=== PATIENT | male | born 1990 | race Caucasian/White ===

== ENCOUNTER 2017-03-17 07:17 | Emergency (ER) | payer BC ==
[~2017-03-17] VITALS: Ht 175.3 cm; Wt 117.9 kg
--- NOTE | 2017-03-17 07:42 | ER.PDOC ---
General Chief Complaint: Cough/Congestion Stated Complaint: CONGESTION,ASTHMA,HEADACHE Time seen by MD: 07:39 Source: patient Exam Limitations: no limitations History of Present Illness Initial Comments Cough and congestion for 5 days. No fever or chills. Timing/Duration: gradual Severity: moderate Associated Symptoms: runny nose, cough, headache Constitutional: no symptoms reported EENTM: see HPI Respiratory: see HPI Cardiovascular: no symptoms reported Gastrointestinal: no symptoms reported Genitourinary: no symptoms reported All Other Systems: Reviewed and Negative Past Medical History Medical History: asthma Surgical History: no surgical history Social History Smoking: chew Alcohol Use: occassionally Drug Use: none Physical Exam General Appearance: alert, no distress Nose: rhinorrhea Throat: pharynx nml, airway nml Neck: nml inspection, supple Respiratory: no resp.distress, breath sounds nml Abdomen: non-tender, no organomegaly CVS: reg rate & rhythm, heart sounds nml Extremities: non-tender, nml ROM, no pedal edema NEURO/PSYCH: oriented x 3, CN's nml as tested, motor nml, sensation nml, mood/ affect nml Departure Time of Disposition: 07:40 Disposition: 01 HOME, SELF-CARE Impression: Primary Impression: Acute URI Condition: Stable Referrals: UNDEFINED,PHYSICIAN (PCP) PRIMARY CARE PROVIDER Additional Instructions: Continue Mucinex DM OTC as directed Continue Afrin nose drops OTC as directed for 5 days Push fluids F/U with your PCP in 3-4 days Duration or Time Spent with Pa: 20 mins JEANA JUARES MD Mar 17, 2017 07:42
[2017-03-17 07:48] VITALS: BP 160/92
== END 2017-03-17 07:48 | disposition home or self-care (01) ==
LOC: ER 07:17
DX: J06.9 Acute upper respiratory infection, unspecified (principal); R51 Headache; J45.909 Unspecified asthma, uncomplicated; F17.220 Nicotine dependence, chewing tobacco, uncomplicated
CPT/HCPCS: 99281